=== PATIENT | male | born 1950 | race Caucasian/White ===

== ENCOUNTER 2020-10-12 16:19 | Emergency (ER) | payer OTHER ==
[~2020-10-12] VITALS: Ht 182.9 cm; Wt 80.7 kg
--- NOTE | 2020-10-12 16:40 | NUR ---
right great toe non-healing ulcer x 4 weeks. Patient a/ox4, breathing even and unlabored, assisted in bed, kept comfortable.
[2020-10-12] MEDS ORDERED: CLIN150C16 PO (18:00)
[2020-10-12] MEDS ORDERED: SULF1TAB48 PO (18:00)
[2020-10-12] MEDS ORDERED: BACITRACIN ZINC OINT PACKET 1 EA PACKET TP ONE ×2 (18:00→18:06)
[2020-10-12] MEDS ORDERED: CLINDAMYCIN HCL 150 MG CAPSULE PO ONE ×2 (18:07→18:30)
[2020-10-12] MEDS ORDERED: SULFAMETH/TRIMETH 800/160 MG 1 UDTAB TABLET ONE (18:07)
--- NOTE | 2020-10-12 18:15 | NUR ---
WOUND CARE DONE ON RIGHT GREAT TOE. PATIENT GIVEN INFORMATION TO FOLLOW UP WITH A ACCOUNT MANAGER TRAINEE (DR. JUARES) PHONE # PROVIDED.
--- NOTE | 2020-10-12 18:20 | NUR ---
Patient discharged to home in stable condition. Written and verbal after care instructions given. Patient verbalizes understanding of instruction.
[2020-10-12 18:27] VITALS: BP 148/61
[2020-10-12] MEDS ORDERED: SULFAMETH/TRIMETH 800/160 MG 1 UDTAB TABLET PO ONE (18:30)
== END 2020-10-12 18:27 | disposition home or self-care (01) ==
LOC: ER 16:22
DX: E11.621 Type 2 diabetes mellitus with foot ulcer (principal); L97.511 Non-pressure chronic ulcer of other part of right foot limited to breakdown of skin; I10 Essential (primary) hypertension; Z98.890 Other specified postprocedural states; Z88.1 Allergy status to other antibiotic agents; Z79.899 Other long term (current) drug therapy